=== PATIENT | female | born 1965 | race American Indian/Alaskan Native ===

== ENCOUNTER 2021-07-17 23:51 | Emergency (ER) | payer MEDICARE, MEDICAID ==
[2021-07-18 01:28] VITALS: BP 150/101
--- NOTE | 2021-07-18 01:46 | Emergency Department Report ---
ED General Adult HPI - General Chief complaint: Extremity Injury, Lower Stated complaint: Leg pain Time Seen by Provider: 07/18/21 01:36 Source: patient Mode of arrival: Ambulatory Limitations: No Limitations - History of Present Illness Initial comments: 55-year-old female patient with history of lupus presents emergency department with complaints of nontraumatic bilateral lower extremity pain progressively worsening for 2 weeks. Patient states she recently relocated to [place] from [place] and is not currently under the care of a case management rn and has been out of her steroids since she came to [place]. Previously, patient was taking Prednisone 10 mg daily. Patient is unsure of her baseline renal function but states that at her last rheumatology appointment, "everything looked good." Denies fever, chest pain, shortness of breath, peripheral edema, urinary symptoms, abnormal bleeding/bruising, rash. Denies all other complaints at this time. - Related Data Home Medications Medication Instructions Recorded Confirmed Last Taken HYDROcodone/APAP 10-325 [[place] 1 each PO Q6HR PRN 05/28/15 11/02/15 11/02/15 10-325 mg TAB] Pregabalin 75 mg PO BID 05/28/15 11/02/15 11/02/15 traMADoL [Ultram 50 MG tab] 50 mg PO Q6HR PRN 05/28/15 11/02/15 11/02/15 Losartan [Cozaar] 75 mg PO QDAY 11/02/15 11/02/15 11/02/15 Zolpidem [Ambien] 5 mg PO QHS PRN 11/02/15 11/02/15 11/01/15 hydroCHLOROthiazide [HCTZ] 25 mg PO QDAY 11/02/15 11/02/15 11/02/15 Previous Rx's Medication Instructions Recorded Last Taken Type predniSONE 10 mg PO QDAY #14 tab 07/18/21 Unknown Rx Allergies Allergy/AdvReac Type Severity Reaction Status Date / Time Iodinated Contrast Media AdvReac Unknown Verified 05/30/14 02:30 [Iodinated Contrast Media - IV Dye] ED Review of Systems ROS: Stated complaint: LEG PAIN NUMBNESS/TINGLING Other details as noted in HPI Other: GENERAL: Negative for fever, chills, weight change, anorexia, fatigue. ENT: Negative for ear pain, difficulty hearing, sore throat, nasal congestion, epistaxis. CARDIOVASCULAR: Negative for chest pain, palpitations, lower extremity swelling. PULMONARY: Negative for cough, dyspnea, wheezing, orthopnea, cyanosis. GASTROINTESTINAL: Negative for abdominal pain, nausea, vomiting, diarrhea, constipation. MUSCULOSKELETAL: Positive for leg pain. NEUROLOGICAL: Negative for headache, seizure, syncope, paresthesias, weakness. INTEGUMENTARY: Negative for erythema, rash, diaphoresis, laceration, ecchymosis. HEMATOLOGICAL: Negative for hemoptysis, hematemesis, hematochezia, hematuria. PSYCHIATRIC: Negative for hallucinations, suicidal ideation, homicidal ideation, anxiety, depression. ED Past Medical Hx - Past Medical History Hx Hypertension: Yes Hx Arthritis: Yes (rheumatoid) Hx Asthma: Yes Additional medical history: CARPAL TUNNEL. Anemia remotely in the past from heavy menses, but not recently - Surgical History Past Surgical History?: Yes Hx Cholecystectomy: Yes Additional Surgical History: tubal ligation. hysterectomy. tonsillectomy - Social History Smoking Status: Current Every Day Smoker Substance Use Type: None - Medications Home Medications: Home Medications Medication Instructions Recorded Confirmed Last Taken Type HYDROcodone/APAP 10-325 [[place] 1 each PO Q6HR PRN 05/28/15 11/02/15 11/02/15 History 10-325 mg TAB] Pregabalin 75 mg PO BID 05/28/15 11/02/15 11/02/15 History traMADoL [Ultram 50 MG tab] 50 mg PO Q6HR PRN 05/28/15 11/02/15 11/02/15 History Losartan [Cozaar] 75 mg PO QDAY 11/02/15 11/02/15 11/02/15 History Zolpidem [Ambien] 5 mg PO QHS PRN 11/02/15 11/02/15 11/01/15 History hydroCHLOROthiazide [HCTZ] 25 mg PO QDAY 11/02/15 11/02/15 11/02/15 History predniSONE 10 mg PO QDAY #14 tab 07/18/21 Unknown Rx ED Physical Exam - General Limitations: No Limitations - Other Other exam information: General: Awake and alert. No acute distress. Head: Atraumatic, normocephalic. Eyes: EOMI. Pupils are equal and round. Normal sclera and conjunctiva. ENT: Oral mucosa is moist. Normal pharyngeal exam. Neck: Supple. No lymphadenopathy. Pulmonary: No respiratory distress. Clear to auscultation bilaterally. Cardiac: Regular rate and rhythm. Pulses are palpable and equal bilaterally. No lower extremity cyanosis or edema. Skin: Warm and dry. No rashes. Abdomen: Soft, non-tender, non-protuberant. No guarding, rigidity, or rebound. Bowel sounds are normal. No organomegaly or masses noted. Back: Normal alignment. No CVA tenderness. Extremities: Symmetrical. Full range of motion intact. Neurological: Alert and oriented, appropriately interactive, no focal deficits. Psych: Cooperative. Appropriate mood and affect. Speech is evenly metered. Thoughts are logically construed. ED Course Vital Signs 07/18/21 01:26 Temperature 98.8 F Pulse Rate 95 H Respiratory 20 Rate Blood Pressure 150/101 O2 Sat by Pulse 100 Oximetry ED Medical Decision Making - Lab Data Result diagrams: 07/18/21 02:00 07/18/21 02:00 - Medical Decision Making Differential diagnosis including but not limited to: dehydration, electrolyte abnormality, hypoglycemia, rhabdomyolysis, lupus, peripheral neuropathy On reevaluation, patient remains stable. Labs consistent with dehydration. Given IV fluids. Patient will be restarted on her steroids and instructed to follow-up with primary care provider and/or case management rn this week. Loading dose of Prednisone administered in the emergency department. Patient expressed understanding and is agreeable to plan of care. Lifestyle modifications discussed. Strict return precautions provided. Repeat exam is unremarkable and benign. History, exam, diagnostic testing, and current condition do not suggest worrisome pathology to warrant further testing, continued ED treatment, admission, or surgical evaluation at this point. Given the low probability of a significant medical illness, it would be more likely to result in harm than benefit to perform further testing at this stage. Discussed findings, presumptive diagnosis, need for follow-up and specific signs/symptoms that should prompt immediate return to the emergency department. Instructions were explained in detail to the patient in addition to giving written discharge information. Patient expressed understanding and was given the opportunity to ask questions, all of which were satisfactorily answered prior to discharge home. Critical care attestation.: If time is entered above; I have spent that time in minutes in the direct care of this critically ill patient, excluding procedure time. ED Disposition Clinical Impression: Dehydration, History of lupus Disposition: HOME / SELF CARE / HOMELESS Is pt being admited?: No Does the pt Need Aspirin: No Condition: Stable Instructions: Dehydration, Adult, [id number] Additional Instructions: Take Tylenol every 4 hours as needed for pain. Take Prednisone with food as directed. Rest. Drink plenty of fluids. Follow-up with primary care provider this week. Call Tuesday to schedule an appointment. See referral information below. Your primary care provider will help you coordinate a visit with a case management rn. Return to the emergency department immediately for new or worsening symptoms. Specifically, return to the emergency department immediately for fever, chest pain, difficulty breathing, numbness, weakness, palpitations, swelling, or any other concerns. Prescriptions: predniSONE 10 mg PO QDAY #14 tab Referrals: WASHINGTON SINHA MD [Staff Physician] - 3-5 Days [facility] [Provider Group] - 3-5 Days AUDRA HI MD [Staff Physician] - 3-5 Days Time of Disposition: 03:04
[2021-07-18] MEDS ORDERED: predniSONE 20 MG TAB PO ONE (01:52)
[2021-07-18] MEDS ORDERED: ACETAMINOPHEN 500 MG TAB PO ONE (01:52)
[2021-07-18 02:18] LABS: Basophils % (Auto) 0.6 % (0.0-1.8); Eosinophils # (Auto) 0.1 K/mm3 (0.0-0.4); Eosinophils % (Auto) 1.6 % (0.0-4.3); Hematocrit 34.3 % (30.3-42.9); Hemoglobin 11.1 gm/dl (10.1-14.3); Lymphocytes # (Auto) 1.8 K/mm3 (1.2-5.4); Lymphocytes % (Auto) 26.7 % (13.4-35.0); Mean Corpuscular HGB Conc 33 % (30-34); Mean Corpuscular Volume 81 fl (79-97); Monocytes # (Auto) 0.5 K/mm3 (0.0-0.8); Platelet Count 304 K/mm3 (140-440); Red Blood Count 4.21 M/mm3 (3.65-5.03); Red Cell Distribution Width 15.4 % (13.2-15.2)
[2021-07-18 02:38] LABS: Alanine Aminotransferase 22 units/L (7-56); Albumin 4.6 g/dL (3.9-5); Blood Urea Nitrogen 19 mg/dL (7-17); Hemolysis Index 1
[2021-07-18 02:41] LABS: BUN/Creatinine Ratio 32
[2021-07-18] MEDS ORDERED: SODIUM CHLORIDE 0.9% 1000 ML 1,000 ML IV ONE (03:00)
== END 2021-07-18 03:30 | disposition home or self-care (01) ==
LOC: ED 23:51
DX: E86.0 Dehydration (principal); M32.10 Systemic lupus erythematosus, organ or system involvement unspecified; I10 Essential (primary) hypertension; J45.909 Unspecified asthma, uncomplicated; Z90.49 Acquired absence of other specified parts of digestive tract; F17.200 Nicotine dependence, unspecified, uncomplicated; Z90.710 Acquired absence of both cervix and uterus
CPT/HCPCS: 36415; 80053; 82550; 83735; 85025; 99283; J7512

== ENCOUNTER 2021-11-16 01:56 | Emergency (ER) | payer MEDICAID, MEDICARE ==
[2021-11-16 02:13] VITALS: BP 170/91
[2021-11-16] MEDS ORDERED: predniSONE 20 MG TAB PO ONE (02:19)
[2021-11-16] MEDS ORDERED: KETOROLAC 30 MG/1 ML INJ IM ONE (02:19)
[2021-11-16] MEDS ORDERED: ONDANSETRON 4 MG ODT TAB PO ONE (02:19)
[2021-11-16] MEDS ORDERED: oxyCODONE /ACETAMINOPHEN 5-325MG TAB PO ONE (02:19)
--- NOTE | 2021-11-16 02:31 | Emergency Department Report ---
ED Extremity Problem HPI - General Chief complaint: Pain General Stated complaint: HIP PAIN/LEG PAIN Source: patient Mode of arrival: Ambulatory Limitations: No Limitations - History of Present Illness Initial comments: Patient is a 56-year-old -[place] female with a history of SLE, asthma, hypertension and chronic rheumatoid arthritis who presents to the ED with acute exacerbation of her chronic pain characterized by left hip and left knee pain for the last 3 days. Patient states that she was initially evaluated and treated for pain at [facility] ER about 3 days ago and that pain medications that were written for her she could not fill because only her resource recovery specialist is allowed to reduce pain medications and therefore the pharmacist could not fill the prescriptions. Patient states that in the last 24 hours she has not been able to sleep because of worsening pain of her left hip and left knee joint which she attributes to her chronic rheumatoid arthritis and SLE flareup. Patient denies dizziness, syncope, fall, fever, chills, heavy lifting, chest pain, shortness of breath, nausea and vomiting, abdominal pain, numbness and tingling or weakness of lower extremities bilaterally, low back pain, neck pain or headache. MD Complaint: extremity pain (left hip pain radiating to left knee; chronic pain), joint paint (left hip and knees) -: Sudden, days(s) (3) Location: lower extremity (left hip and knees), knee (left knee) History of Same: Yes (chronic pain due to SLE and rheumatoid arthritis) -: Yes arthralgia (Left hip and left knee pain) Radiation: distal Severity scale (0 -10): 8 Quality: aching, sharp Consistency: constant Improves with: nothing Worsens with: walking, exertion, palpation, rest Associated Symptoms: denies other symptoms, arthralgias (Left hip and knee pain). denies: chest pain, shortness of breath, fever, myalgias, rash - Related Data Home Medications Medication Instructions Recorded Confirmed Last Taken HYDROcodone/APAP 10-325 [[place] 1 each PO Q6HR PRN 05/28/15 11/02/15 11/02/15 10-325 mg TAB] Pregabalin 75 mg PO BID 05/28/15 11/02/15 11/02/15 traMADoL [Ultram 50 MG tab] 50 mg PO Q6HR PRN 05/28/15 11/02/15 11/02/15 Losartan [Cozaar] 75 mg PO QDAY 11/02/15 11/02/15 11/02/15 Zolpidem [Ambien] 5 mg PO QHS PRN 11/02/15 11/02/15 11/01/15 hydroCHLOROthiazide [HCTZ] 25 mg PO QDAY 11/02/15 11/02/15 11/02/15 Previous Rx's Medication Instructions Recorded Last Taken Type predniSONE 10 mg PO QDAY #14 tab 07/18/21 Unknown Rx Naproxen 500 mg PO Q12H PRN #30 tab 11/16/21 Unknown Rx methOCARBAMOL [Robaxin TAB] 750 mg PO Q12H PRN #30 tab 11/16/21 Unknown Rx predniSONE [Deltasone] 60 mg PO QDAY #15 tab 11/16/21 Unknown Rx Allergies Allergy/AdvReac Type Severity Reaction Status Date / Time Iodinated Contrast Media AdvReac Unknown Verified 05/30/14 02:30 [Iodinated Contrast Media - IV Dye] ED Review of Systems ROS: Stated complaint: HIP PAIN/LEG PAIN Other details as noted in HPI Constitutional: denies: chills, fever Eyes: denies: eye pain, eye discharge, vision change ENT: denies: ear pain, throat pain Respiratory: denies: cough, shortness of breath, wheezing Cardiovascular: denies: chest pain, palpitations Endocrine: no symptoms reported Gastrointestinal: denies: abdominal pain, nausea, vomiting, diarrhea Genitourinary: denies: urgency, dysuria, discharge Musculoskeletal: arthralgia (Left hip and knee pain). denies: back pain, joint swelling Skin: denies: rash, lesions Neurological: denies: headache, weakness, paresthesias Psychiatric: denies: anxiety, depression Hematological/Lymphatic: denies: easy bleeding, easy bruising ED Past Medical Hx - Past Medical History Previous Medical History?: Yes Hx Hypertension: Yes Hx Arthritis: Yes (rheumatoid) Hx Asthma: Yes Additional medical history: SLE; CARPAL TUNNEL. Anemia remotely in the past from heavy menses, but not recently - Surgical History Past Surgical History?: Yes Hx Cholecystectomy: Yes Additional Surgical History: tubal ligation. hysterectomy. tonsillectomy - Social History Smoking Status: Never Smoker Substance Use Type: None - Medications Home Medications: Home Medications Medication Instructions Recorded Confirmed Last Taken Type HYDROcodone/APAP 10-325 [[place] 1 each PO Q6HR PRN 05/28/15 11/02/15 11/02/15 History 10-325 mg TAB] Pregabalin 75 mg PO BID 05/28/15 11/02/15 11/02/15 History traMADoL [Ultram 50 MG tab] 50 mg PO Q6HR PRN 05/28/15 11/02/15 11/02/15 History Losartan [Cozaar] 75 mg PO QDAY 11/02/15 11/02/15 11/02/15 History Zolpidem [Ambien] 5 mg PO QHS PRN 11/02/15 11/02/15 11/01/15 History hydroCHLOROthiazide [HCTZ] 25 mg PO QDAY 11/02/15 11/02/15 11/02/15 History predniSONE 10 mg PO QDAY #14 tab 07/18/21 Unknown Rx Naproxen 500 mg PO Q12H PRN #30 tab 11/16/21 Unknown Rx methOCARBAMOL [Robaxin TAB] 750 mg PO Q12H PRN #30 tab 11/16/21 Unknown Rx predniSONE [Deltasone] 60 mg PO QDAY #15 tab 11/16/21 Unknown Rx ED Physical Exam - General Limitations: No Limitations General appearance: alert, in no apparent distress - Head Head exam: Present: atraumatic, normocephalic, normal inspection - Eye Eye exam: Present: normal appearance, PERRL, EOMI Pupils: Present: normal accommodation - ENT ENT exam: Present: normal exam, normal orophraynx, mucous membranes moist, TM's normal bilaterally, normal external ear exam - Neck Neck exam: Present: normal inspection, full ROM. Absent: tenderness - Respiratory Respiratory exam: Present: normal lung sounds bilaterally. Absent: respiratory distress, wheezes, rales, rhonchi, chest wall tenderness, accessory muscle use, decreased breath sounds, prolonged expiratory - Cardiovascular Cardiovascular Exam: Present: regular rate, normal rhythm, normal heart sounds. Absent: systolic murmur, diastolic murmur, rubs, gallop - GI/Abdominal GI/Abdominal exam: Present: soft, normal bowel sounds. Absent: distended, tenderness, guarding, rebound, rigid, hyperactive bowel sounds, hypoactive bowel sounds, mass, pulsatile mass - Extremities Exam Extremities exam: Present: normal inspection, full ROM, tenderness (Palpable left hip and knee tenderness), normal capillary refill - Back Exam Back exam: Present: normal inspection, full ROM. Absent: tenderness, CVA tenderness (R), muscle spasm, paraspinal tenderness, vertebral tenderness - Neurological Exam Neurological exam: Present: alert, oriented X3, CN II-XII intact, normal gait, reflexes normal - Psychiatric Psychiatric exam: Present: normal affect, normal mood, anxious - Skin Skin exam: Present: warm, dry, intact, normal color. Absent: rash ED Course Vital Signs 11/16/21 02:07 Temperature 98.3 F Pulse Rate 89 Respiratory 18 Rate Blood Pressure 170/91 O2 Sat by Pulse 100 Oximetry ED Medical Decision Making - Medical Decision Making This is a 56-year-old -[place] female with a history of SLE, asthma, hypertension and chronic rheumatoid arthritis who presents to the ED with acute exacerbation of her chronic pain characterized by left hip and left knee pain for the last 3 days. Patient states that she was initially evaluated and treated for pain at [facility] ER about 3 days ago and that pain medications that were written for her she could not fill because only her resource recovery specialist is allowed to reduce pain medications and therefore the pharmacist could not fill the prescriptions. Patient states that in the last 24 hours she has not been able to sleep because of worsening pain of her left hip and left knee joint which she attributes to her chronic rheumatoid arthritis and SLE flareup. In the ED, patient is alert and oriented x3 and is not in distress. Patient was treated for pain in the ED and discharged home on medications. Patient was advised to follow-up with her resource recovery specialist as previously scheduled of November. Patient was advised return to the ED immediately if symptoms get worse. - Differential Diagnosis Chronic pain syndrome; rheumatoid arthritis; SLE flareup; DJD Critical care attestation.: If time is entered above; I have spent that time in minutes in the direct care of this critically ill patient, excluding procedure time. ED Disposition Clinical Impression: Chronic pain syndrome, Rheumatoid arthritis flare, Chronic left hip pain Disposition: HOME / SELF CARE / HOMELESS Is pt being admited?: No Does the pt Need Aspirin: No Condition: Stable Instructions: Musculoskeletal Pain, Arthritis, [id number], Chronic Pain, Adult, Pain Medicine Instructions, [id number] Additional Instructions: Take medication with food, drink plenty of fluids and follow-up with your primary care physician or resource recovery specialist physician in 7 to 10 days for reevaluation. Return to the ED immediately if symptoms get worse. Prescriptions: predniSONE [Deltasone] 60 mg PO QDAY #15 tab Naproxen 500 mg PO Q12H PRN #30 tab PRN Reason: Pain , Severe (7-10) methOCARBAMOL [Robaxin TAB] 750 mg PO Q12H PRN #30 tab PRN Reason: Muscle Spasm Referrals: PRIMARY CARE, [Primary Care Provider] - 3-5 Days [facility] [Provider Group] - 7-10 days Time of Disposition: 02:35 Print Language: SWEDISH
== END 2021-11-16 02:47 | disposition home or self-care (01) ==
LOC: ED 01:56
DX: G89.4 Chronic pain syndrome (principal); M06.9 Rheumatoid arthritis, unspecified; M25.552 Pain in left hip; I10 Essential (primary) hypertension; M19.90 Unspecified osteoarthritis, unspecified site; J45.909 Unspecified asthma, uncomplicated; M32.9 Systemic lupus erythematosus, unspecified; Z90.49 Acquired absence of other specified parts of digestive tract; Z98.51 Tubal ligation status; Z90.710 Acquired absence of both cervix and uterus; Z98.890 Other specified postprocedural states; Z91.041 Radiographic dye allergy status
CPT/HCPCS: 96372; 99282; J1885; J3490; Q0162

== ENCOUNTER 2022-01-27 23:15 | Emergency (ER) | payer OTHER, MEDICARE ==
[2022-01-27 23:45] VITALS: BP 132/52
== END 2022-01-27 23:38 | disposition left against medical advice (07) ==
LOC: ED 23:15
DX: R07.9 Chest pain, unspecified (principal); Z53.21 Procedure and treatment not carried out due to patient leaving prior to being seen by health care provider